=== PATIENT | female | born 1985 | race Caucasian/White ===

== ENCOUNTER 2016-08-08 21:30 | Emergency (ER) | payer MEDICAID ==
[2016-08-08] MEDS ORDERED: PROPARACAINE HCL OPTH 15ML BTL OPTH ONE (21:38)
--- NOTE | 2016-08-08 21:39 | Emergency Department Record ---
History of Present Illness - General Chief complaint: Eye Problem Stated complaint: DRY EYE Source: Patient Mode of Arrival: Ambulatory Limitations: No limitations - History of Present Illness Initial comments: 30 yo female presents with left eye redness and irritation for the last 3 days. She thought it might be allergies. She was seen in the [facility] care and was given gentamycin and cromolyn drops without improvement. She wears glasses. No contacts. No fevers. No drainage. No history of eye surgery or eye disease. She is seen by optometry in [place]. She called today to make an appointment and it was made for next week. chief complaint: Eye pain, Eye redness -: Days(s) (3) Location: Both eyes (left greater than right, she has pain in the left when the right is open) If Injury: None Eye Symptoms: Burning, Itching, Pain, Photophobia Severity: Moderate If Pain, Quality: Aching Consistency: Constant Associated Symptoms: None Treatments Prior to Arrival: Other (gentamycin and cromolyn) - Related Data Home Medications Medication Instructions Recorded Confirmed Last Taken Mesalamine 4 gm RC QOD ml 05/30/15 08/08/16 Unknown Hyoscyamine Sulfate 0.125 mg SL TID tab 07/17/16 08/08/16 Unknown Allergies Allergy/AdvReac Type Severity Reaction Status Date / Time Penicillins Allergy PT UNSURE Verified 08/08/16 21:37 OF REACTION sulfamethoxazole Allergy HIVES Verified 08/08/16 21:37 [From Bactrim] trimethoprim [From Bactrim] Allergy HIVES Verified 08/08/16 21:37 Review of Systems Constitutional: Denies: Chills, Fever, Malaise, Weakness Eyes: Reports: Eye pain, Photophobia, Vision change. Denies: Eye discharge ENT: Reports: Congestion. Denies: Throat pain Respiratory: Denies: Cough Cardiovascular: Denies: Chest pain, Palpitations, Syncope Endocrine: Denies: Fatigue Gastrointestinal: Denies: Abdominal pain, Diarrhea, Nausea, Vomiting Genitourinary: Denies: Dysuria, Urgency Musculoskeletal: Denies: Arthralgia, Back pain, Myalgia, Neck pain Skin: Denies: Bruising, Change in color, Rash Neurological: Denies: Headache, Numbness, Weakness Psychiatric: Denies: Anxiety Hematological/Lymphatic: Denies: Blood Clots, Easy bleeding, Easy bruising, Swollen glands Past Medical History - SOCIAL HISTORY Smoking Status: Never smoker - RESPIRATORY Hx Respiratory Disorders: No - CARDIOVASCULAR Hx Cardio Disorders: No - NEURO Hx Neuro Disorders: No - GI Hx GI Disorders: No - Hx Genitourinary Disorders: No - ENDOCRINE Hx Endocrine Disorders: No - MUSCULOSKELETAL Hx Musculoskeletal Disorders: No - PSYCH Hx Psych Problems: No - HEMATOLOGY/ONCOLOGY Hx Hematology/Oncology Disorders: No Family Medical History Hx Alcohol Use: Father, Mother Hx Anxiety: Father, Mother Hx Cancer: Mother Hx Depression: Father, Mother Hx Diabetes: Father Physical Exam - General General Appearance: Alert, Oriented x3, Cooperative, No acute distress Limitations: No limitations - Head Head exam: Normal inspection - Eye Eye exam: PERRL, Conjunctival injection (diffusely injected), EOMI, Other (AC is clear, pupil is round and reactive). negative: Normal appearance, Periorbital swelling, Periorbital tenderness Pupils: negative: Irregular, Unequal - ENT ENT exam: Normal exam, Normal orophraynx Ear exam: Normal external inspection Nasal Exam: Normal inspection Mouth exam: Normal external inspection - Neck Neck exam: Normal inspection - Rectal Rectal exam: Deferred - exam: Deferred - Neurological Neurological exam: Alert, Oriented X3. negative: Altered - Psychiatric Psychiatric exam: Normal affect, Normal mood - Skin Skin exam: Dry, Intact, Normal color, Warm. negative: Erythema Course - Reevaluation(s) Reevaluation #1: The patient had Alcaine drops placed without improvement of the pain I was able to stain the eye. No uptake at this time, no corneal abnormalities She has diffuse injection but the AC appears clear. I SW Dr Moses of her eye doctor office We discussed the findings. This clinically is more in line with an iritis He recommended Homatropine 2 drops tonight and 1 drop in the morning He will see her 8:30am in the office 08/08/16 22:07 08/08/16 22:11 Disposition Clinical Impression: Eye pain, Iritis Disposition: Home, Self-Care Additional Instructions: follow up to be seen by Dr Moses at 8:30am in the morning you may take one drop of the Homatropine upon waking in the morning Referrals: CLINT MOSES [] - Forms: Patient Portal Access
[2016-08-08] MEDS ORDERED: OPTH OPTH SCH (22:15)
[2016-08-08] MEDS ORDERED: HOMATROPINE HBR OPTH SCH (22:15)
[2016-08-08] MEDS ORDERED: HOMATROPINE HBR OPTH ONE (22:48)
[2016-08-08] MEDS ORDERED: OPTH OPTH ONE (22:48)
[2016-08-08] MEDS ORDERED: IBUPROFEN 600 MG TABLET PO ONE (23:01)
[2016-08-08] MEDS ORDERED: HYDROCODONE/APAP 5/325MG TABLET PO ONE (23:01)
== END 2016-08-08 23:08 | disposition home or self-care (01) ==
LOC: ER 21:30
DX: H20.013 Primary iridocyclitis, bilateral (principal)
CPT/HCPCS: 99282

== ENCOUNTER 2016-09-09 12:45 | Day surgery (SDC) | payer MEDICAID ==
[2016-09-09] MEDS ORDERED: PROPOFOL 10 MG/ML VIAL IV ONE (14:00)
[2016-09-09] MEDS ORDERED: LIDOCAINE 2% MDV (20MG/ML) 20ML VIAL IV ONE (14:00)
--- NOTE | 2016-09-11 14:24 | Operative Note ---
DATE OF SURGERY: 09/09/2016 Dictated by: Anaid Maxwell D.O. for Roberto Carlos De Leon D.O. PREOPERATIVE DIAGNOSIS: Ulcerative proctitis. POSTOPERATIVE DIAGNOSIS: Ulcerative proctitis. Surgeon: Roberto Carlos De Leon D.O. Histology Manager: Anaid Maxwell D.O. OPERATION: Diagnostic colonoscopy Anesthesia: Anesthesia was provided by the Anesthesia Department with propofol titrated to patient. PROCEDURE: The procedure was discussed with the patient, including risks, benefits, and alternatives, and patient was agreeable to the procedure. She had an opportunity to have her questions answered. She signed informed written consent and was taken back to the endoscopy suite. She was placed in the left lateral decubitus position. Anesthesia was begun. A digital rectal exam was performed, which was normal. No abnormalities were palpated. A PCF-160 colonoscope was then lubricated and placed in the patient's rectum. At the beginning of the procedure, there was note of some inflammation in the distal rectum, approximately 2-3 cm. the scope was then advanced easily to the cecum, which was identified by the appendiceal orifice and ileocecal valve. No abnormalities were noted. The mucosa appeared normal with normal distensibility, normal mucosal folds, and normal vascularity. The terminal ileum was then intubated, which also appeared normal. There was no irregularity to the terminal ileal mucosa noted. The colonoscope was then withdrawn. Careful inspection was made. The colonic mucosa, vascularity, and mucosal folds appeared normal, and distensibility was normal throughout the colon until distal rectum was observed. Retroflexion was performed. Again, inflammation was seen at the distal rectum, approximately 2-3 cm. The scope was then straightened and multiple cold forceps biopsies were obtained in 4 quadrants of the erythematous part of the rectum. These were collected and sent to Pathology. The scope was then withdrawn completely from the patient and patient tolerated the procedure well. Patient was then transferred to the Recovery Unit. IMPRESSION: 1. Distal ulcerative proctitis, approximately 2-3 cm from anal verge, with multiple biopsies obtained and sent to Pathology. 2. Normal terminal ileum and normal colon, otherwise. DISCHARGE INSTRUCTIONS: Patient to continue Asacol enemas and start a steroid taper by 5 mg every week until the end. She is recommended to have repeat colonoscopy in 2 years unless she becomes symptomatic, otherwise. We will await the pathology results from the biopsies. CC: Coco Casas M.D. [facility]
== END 2016-09-09 14:32 | disposition home or self-care (01) ==
LOC: HOP 12:45
PROVIDERS: ATTEND Internal Medicine Gastroenterology
DX: K51.20 Ulcerative (chronic) proctitis without complications (principal)
CPT/HCPCS: 81025

== ENCOUNTER 2017-08-10 18:10 | Emergency (ER) | payer MEDICAID ==
[2017-08-10] MEDS: Diph,Pert(Acell),Tet Vac 0.5 ML SYR IM ONE (18:41)
--- NOTE | 2017-08-10 18:41 | Emergency Department Record ---
History of Present Illness - General Chief complaint: Abscess Stated complaint: RT LEG ABCESS Time Seen by Provider: 08/10/17 18:26 Source: Patient Mode of Arrival: Ambulatory Limitations: No limitations - History of Present Illness Initial comments: The patient is here due to a skin abscess to the R medial proximal lower leg for 5 days. She denies any injury or fever. complaint: Abscess/boil Onset/Timin -: Days(s) Patient Tetanus UTD (within 5 yrs): No Severity: Moderate Severity scale (1-10): 7 Quality: Aching Consistency: Constant Improves with: None Worsens with: Palpation - Related Data Previous Rx's Medication Instructions Recorded Clindamycin HCl [Cleocin HCl] 300 mg PO QID #28 capsule 08/10/17 Allergies Allergy/AdvReac Type Severity Reaction Status Date / Time Penicillins Allergy PT UNSURE Verified 08/10/17 18:26 OF REACTION sulfamethoxazole Allergy HIVES Verified 08/10/17 18:26 [From Bactrim] trimethoprim [From Bactrim] Allergy HIVES Verified 08/10/17 18:26 Travel Screening - Travel/Exposure Within Last 30 Days Have you traveled within the last 30 days?: No - Travel/Exposure Within Last Year Have you traveled outside the [place] in the last year?: No - Additonal Travel Details Have you been exposed to anyone with a communicable illness?: No - Travel Symptoms Symptom Screening: None Review of Systems Constitutional: Denies: Chills, Fever Past Medical History - SOCIAL HISTORY Smoking Status: Never smoker Alcohol Use: None Drug Use Detail:: Marijuana - RESPIRATORY Hx Respiratory Disorders: No - CARDIOVASCULAR Hx Cardio Disorders: No - NEURO Hx Neuro Disorders: No - GI Hx GI Disorders: Yes Hx Irritable Bowel: Yes (Spastic colon; ulcitic proctitis) Comment:: COLITIS - Hx Genitourinary Disorders: Yes Hx UTI: Yes Comment:: CONTROL - ENDOCRINE Hx Endocrine Disorders: No - MUSCULOSKELETAL Hx Musculoskeletal Disorders: No - PSYCH Hx Psych Problems: Yes Hx Anxiety: Yes - HEMATOLOGY/ONCOLOGY Hx Hematology/Oncology Disorders: No Family Medical History Any Significant Family History?: Yes Hx Alcohol Use: Father, Mother Hx Anxiety: Father, Mother Hx Cancer: Mother Hx Depression: Father, Mother Hx Diabetes: Father Physical Exam - General General Appearance: Alert, Oriented x3, Cooperative, No acute distress - Head Head exam: Atraumatic, Normocephalic, Normal inspection - Eye Eye exam: Normal appearance, PERRL - Extremities Extremities exam: negative: Normal inspection (There is a 1 cm superficial skin abscess to the medial proximal R lower leg with 1 cm of surrounding cellulitis. There is no calf, thigh or knee tenderness or swelling.) Course Vital Signs 08/10/17 18:20 Temperature 98.8 F Pulse Rate 80 Respiratory 16 Rate Blood Pressure 116/77 Pulse Ox 98 - Reevaluation(s) Reevaluation #1: Procedure note: The skin abscess was cleansed with betadine and a # 11 blade was used to open the small abscess and drain a small amount of purulent material. There were no complications. 08/10/17 18:45 Reevaluation #2: I did explain to the patient the need to keep the area clean and wash daily and take the oral abx's. 08/10/17 18:46 Disposition Disposition: Discharge Clinical Impression: Abscess of skin Qualifiers: Site of cutaneous abscess: unspecified site Qualified Code(s): L02.91 - Cutaneous abscess, unspecified Disposition: Home, Self-Care Condition: (2) Stable Instructions: Abscess Incision and Drainage (ED) Additional Instructions: Please wash daily and keep covered until healed. Take the Clindamycin as directed. Please see your family doctor if not better in 2 days. Return to the ER for any worsening swelling, pain, redness or fever. Prescriptions: Clindamycin HCl [Cleocin HCl] 300 mg PO QID #28 capsule Forms: Patient Portal Access Time of Disposition: 18:41 Quality - Quality Measures Quality Measures: N/A - Blood Pressure Screening View Details: Yes Does Patient Have Any of the Following: No Blood Pressure Classification: Normal BP Reading Systolic Measurement: 116 Diastolic Measurement: 77 Screening for High Blood Pressure: < Normal BP, F/U Not Required > [G8783]
[2017-08-10] MEDS: CLINDAMYCIN 150 MG CAP PO ONE (18:44)
== END 2017-08-10 18:48 | disposition home or self-care (01) ==
LOC: ER 18:10
DX: L03.115 Cellulitis of right lower limb (principal)
CPT/HCPCS: 10060; 90715; 96372; 99283

== ENCOUNTER 2018-10-17 08:19 | Emergency (ER) | payer OTHER, MEDICAID ==
[2018-10-17] MEDS ORDERED: CLINDAMYCIN 150 MG CAP PO ONE (08:37)
--- NOTE | 2018-10-17 08:37 | Emergency Department Record ---
History of Present Illness - General Stated complaint: INSECT BITE LT KNEE Time Seen by Provider: 10/17/18 08:21 Source: Patient Mode of Arrival: Ambulatory Limitations: No limitations - History of Present Illness Initial comments: 32 yo female presents with a concern about a possible insect bite to the left leg. She did not see any actual insect. No fever/chills. No body aches. No nausea, vomiting or diarrhea. She is concerned about possible bed bug infestation at work. No other specific changes in her recent health. The area on the left knee has been present 4 days. Other areas remained small and resolved. No limit in knee ROM. MD Complaint: Extremity swelling Location: Left, Knee History of Same: No Radiation: Distal Quality: Aching Consistency: Constant Improves with: Nothing Worsens with: Nothing Associated Symptoms: Denies other symptoms - Related Data Home Medications Medication Instructions Recorded Confirmed Last Taken Mesalamine [Lialda] 2.4 gm PO DAILY 10/17/18 10/17/18 10/16/18 Previous Rx's Medication Instructions Recorded Clindamycin HCl 300 mg PO TID #21 capsule 10/17/18 Allergies Allergy/AdvReac Type Severity Reaction Status Date / Time Penicillins Allergy PT UNSURE Unverified 08/27/18 16:27 OF REACTION sulfamethoxazole Allergy HIVES Unverified 08/27/18 16:27 [From Bactrim] trimethoprim [From Bactrim] Allergy HIVES Unverified 08/27/18 16:27 Review of Systems Constitutional: Denies: Chills, Fever, Malaise, Weakness Eyes: Denies: Eye discharge ENT: Denies: Congestion, Ear pain, Throat pain Respiratory: Denies: Cough, Dyspnea Cardiovascular: Denies: Chest pain, Syncope Endocrine: Denies: Fatigue Gastrointestinal: Denies: Abdominal pain, Diarrhea, Nausea, Vomiting Genitourinary: Denies: Dysuria, Urgency Musculoskeletal: Reports: As per HPI, Other Skin: Reports: As per HPI, Change in color, Rash Neurological: Denies: Weakness Psychiatric: Denies: Anxiety Hematological/Lymphatic: Denies: Easy bleeding, Easy bruising Past Medical History - SOCIAL HISTORY Smoking Status: Never smoker Drug Use Detail:: Marijuana - RESPIRATORY Hx Respiratory Disorders: No - CARDIOVASCULAR Hx Cardio Disorders: No - NEURO Hx Neuro Disorders: No - GI Hx GI Disorders: Yes Hx Irritable Bowel: Yes (Spastic colon; ulcitic proctitis) Comment:: COLITIS - Hx Genitourinary Disorders: Yes Hx UTI: Yes Comment:: CONTROL - ENDOCRINE Hx Endocrine Disorders: No - MUSCULOSKELETAL Hx Musculoskeletal Disorders: No - PSYCH Hx Psych Problems: Yes Hx Anxiety: Yes - HEMATOLOGY/ONCOLOGY Hx Hematology/Oncology Disorders: No Family Medical History Hx Alcohol Use: Father, Mother Hx Anxiety: Father, Mother Hx Cancer: Mother Hx Depression: Father, Mother Hx Diabetes: Father Physical Exam - General General Appearance: Alert, Oriented x3, Cooperative, No acute distress Limitations: No limitations - Head Head exam: Atraumatic, Normal inspection - Eye Eye exam: Normal appearance. negative: Conjunctival injection - ENT ENT exam: Normal exam, Mucous membranes moist Ear exam: Normal external inspection Nasal Exam: Normal inspection Mouth exam: Normal external inspection - Neck Neck exam: Normal inspection - Cardiovascular Cardiovascular Exam: Regular rate, Normal rhythm, Normal heart sounds - Extremities Extremities exam: negative: Normal inspection Image of Full Body: 1 - 4cm non fluctuant, erythema, warm, distal to patella, full ROM consistent with local cellullitis without abscess - Back Back exam: Reports: Full ROM. Denies: Rash noted - Neurological Neurological exam: Alert, Oriented X3 - Psychiatric Psychiatric exam: Normal affect, Normal mood. negative: Agitated, Anxious - Skin Skin exam: Dry, Erythema, Intact, Warm Course - Reevaluation(s) Reevaluation #1: 10/17/18 08:39 Examination consistent with non complicated local cellulitis Disposition Disposition: Discharge Clinical Impression: Cellulitis Qualifiers: Site of cellulitis: extremity Site of cellulitis of extremity: lower extremity Laterality: left Qualified Code(s): L03.116 - Cellulitis of left lower limb Disposition: Home, Self-Care Condition: (1) Good Instructions: Cellulitis (ED) Additional Instructions: Call your doctor for the next available follow up appointment Return to the ER for a recheck if worse, any new concerns or questions Take the prescriptions provided as directed Prescriptions: Clindamycin HCl 300 mg PO TID #21 capsule Time of Disposition: 08:37 Quality - Quality Measures Quality Measures: N/A - Blood Pressure Screening Does Patient Have Any of the Following: No Blood Pressure Classification: Pre-Hypertensive BP Reading Systolic Measurement: 122 Diastolic Measurement: 77 Screening for High Blood Pressure: < Pre-Hypertensive BP, F/U Documented > [G8950] Pre-Hypertensive Follow-up Interventions: Referral to alternative/primary care provider.
== END 2018-10-17 08:46 | disposition home or self-care (01) ==
LOC: ER 08:19
DX: L03.116 Cellulitis of left lower limb (principal)
CPT/HCPCS: 99283

== ENCOUNTER 2018-10-19 11:49 | Emergency (ER) | payer OTHER, MEDICAID ==
[2018-10-19] MEDS ORDERED: CLINDAMYCIN 600MG/50ML PREMIX 600 MG/50 ML BAG IVPB ONE (12:16)
--- NOTE | 2018-10-19 12:24 | Emergency Department Record ---
History of Present Illness - General Chief complaint: Bite Insect/other Stated complaint: INSECT BITE Time Seen by Provider: 10/19/18 11:50 Source: Patient Mode of Arrival: Ambulatory Limitations: No limitations - History of Present Illness Initial comments: The patient has had a L knee prepatellar lesion for the last 3 days. She was seen in the ER 2 days ago and started on oral Clindamycin. Since she thinks the area has slightly worsened. There is pain to the area but no fever, chills, or rashes. 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 MD complaint: Lesion, Rash Onset/Timin -: Days(s) Location: LLE Severity: Mild Consistency: Constant Improves with: Immobilization Worsens with: Palpation, Movement Associated symptoms: Denies other symptoms Treatments Prior to Arrival: Antibiotic - Related Data Previous Rx's Medication Instructions Recorded Clindamycin HCl 300 mg PO TID #21 capsule 10/17/18 Allergies Allergy/AdvReac Type Severity Reaction Status Date / Time Penicillins Allergy PT UNSURE Unverified 08/27/18 16:27 OF REACTION sulfamethoxazole Allergy HIVES Unverified 08/27/18 16:27 [From Bactrim] trimethoprim [From Bactrim] Allergy HIVES Unverified 08/27/18 16:27 Travel Screening - Travel/Exposure Within Last 30 Days Have you traveled within the last 30 days?: No Review of Systems Constitutional: Denies: Chills, Fever, Malaise Eyes: Denies: Eye discharge ENT: Denies: Congestion Respiratory: Denies: Cough, Dyspnea Past Medical History - SOCIAL HISTORY Smoking Status: Never smoker - RESPIRATORY Hx Respiratory Disorders: No - CARDIOVASCULAR Hx Cardio Disorders: No - NEURO Hx Neuro Disorders: No - GI Hx GI Disorders: Yes Hx Irritable Bowel: Yes (Spastic colon; ulcitic proctitis) Comment:: COLITIS - Hx Genitourinary Disorders: Yes Hx UTI: Yes Comment:: CONTROL - ENDOCRINE Hx Endocrine Disorders: No - MUSCULOSKELETAL Hx Musculoskeletal Disorders: No - PSYCH Hx Psych Problems: Yes Hx Anxiety: Yes - HEMATOLOGY/ONCOLOGY Hx Hematology/Oncology Disorders: No Family Medical History Any Significant Family History?: Yes Hx Alcohol Use: Father, Mother Hx Anxiety: Father, Mother Hx Cancer: Mother Hx Depression: Father, Mother Hx Diabetes: Father Physical Exam - General General Appearance: Alert, Oriented x3, Cooperative, No acute distress - Head Head exam: Atraumatic - Eye Eye exam: Normal appearance - Extremities Extremities exam: Full ROM, Tenderness, Other (The Knee is clearly not infected with no effusion, warmth or tenderness.). negative: Normal inspection (There is a 4 cm circular lesion to the L prepatellar area. The area is very indurated and NOT fluctuant. There is tenderness to the indurated area. The lesion does have a central blister area present. It is circular in shape. ), Joint swelling, Pedal edema Course Vital Signs 10/19/18 11:56 Temperature 98.2 F Pulse Rate 90 Respiratory 20 Rate Blood Pressure 116/89 Pulse Ox 100 - Reevaluation(s) Reevaluation #1: Procedure note: The L knee prepatellar area was cleansed repeatedly with alcohol and a # 11 blade was used to open and unroof the central clear blister area. The blade was also used to minimally incise the central aspect of the wound. There was a very minimal amount of purulence expressed. 10/19/18 12:25 Reevaluation #2: The patient is doing well at this time. I did discuss the plan to continue the Clindamycin and warm compresses and she is to see her PCP in 2 days for recheck. If she is unable to see her PCP she is to return to the ER for recheck or sooner for any worsening symptoms. 10/19/18 12:54 Medical Decision Making - Data Complexity MDM Data: Labs Ordered and/or Reviewed - Lab Data Result diagrams: 10/19/18 12:25 10/19/18 12:25 Disposition Disposition: Discharge Clinical Impression: Cellulitis Qualifiers: Site of cellulitis: unspecified site Qualified Code(s): L03.90 - Cellulitis, unspecified Disposition: Home, Self-Care Condition: (2) Stable Instructions: Cellulitis (ED) Additional Instructions: Please use Tylenol or Motrin for pain and please continue the Clindamycin along with warm compresses to the L prepatellar area. Please see your doctor in 2 days for recheck. Please return to the ER if unable to see your doctor and also return sooner for any worsening symptoms of pain, redness or any fever. Forms: Patient Portal Access Time of Disposition: 12:56 Quality - Quality Measures Quality Measures: N/A - Blood Pressure Screening View Details: Yes Does Patient Have Any of the Following: No Blood Pressure Classification: Pre-Hypertensive BP Reading Systolic Measurement: 116 Diastolic Measurement: 89 Screening for High Blood Pressure: < Pre-Hypertensive BP, F/U Documented > [G8950] Pre-Hypertensive Follow-up Interventions: Referral to alternative/primary care provider.
[2018-10-19] MEDS ORDERED: ACETAMINOPHEN 1,000 MG/100 ML BTL IVPB ONE (12:26)
[2018-10-19 12:35] LABS: ABSOLUTE NEUTROPHIL COUNT 6.53; BASO % 0.3 % (0-6); EOS % 1.9 % (0-6); GRAN % 73.8 % (47-80); HEMOGLOBIN 13.7 gm/dl (11.6-16.0); LYMPH % 13.6 % (16-45); MEAN CELL VOLUME 87.3 fl (81-97); MEAN CORPUSCULAR HEMOGLOBIN 28.5 pg (27-33); MEAN CORPUSCULAR HGB CONC 32.6 g/dl (32-36); MEAN PLATELET VOLUME 11.2 fl (7.4-10.4); MONO % 10.4 % (0-9); PLATELET COUNT 232 K/uL (130-400); RED BLOOD COUNT 4.81 M/uL (3.80-5.40); RED CELL DISTRIBUTION WIDTH 13.9 % (11.5-14.5); WHITE BLOOD COUNT W/O DIFF 8.9 K/uL (4.2-12.2)
[2018-10-19 12:43] LABS: BLOOD UREA NITROGEN 12 mg/dL (6-20); CREATININE 0.7 mg/dL (0.5-0.9); EST GLOMERULAR FILTRATION RATE > 60 mL/min
[2018-10-19 12:45] LABS: GLUCOSE,RANDOM 77 mg/dL (74-109)
== END 2018-10-19 13:20 | disposition home or self-care (01) ==
LOC: ER 11:49
DX: L03.90 Cellulitis, unspecified (principal)
CPT/HCPCS: 10060; 80048; 85025; 86140; 99283; 99285

== ENCOUNTER 2018-10-21 16:30 | Observation (INO) | payer OTHER, MEDICAID ==
[2018-10-21] MEDS ORDERED: ACETAMINOPHEN 325 MG TAB PO PRN (17:35)
[2018-10-21] MEDS ORDERED: VANCOMYCIN 1GM/200ML PREMIX 1 GM/200 ML PIGGYBACK IVPB SCH (17:45)
[2018-10-21] MEDS ORDERED: 0.9 % SODIUM CHLORIDE 100ML BAG IV SCH (17:45)
[2018-10-21] MEDS: HYDROCODONE/APAP 5/325MG TABLET PO PRN ×2 (18:25→22:37)
[2018-10-21] MEDS ORDERED: 0.9 % SODIUM CHLORIDE 1000ML 1,000 ML IV PRN (18:50)
--- NOTE | 2018-10-21 19:56 | History & Physical ---
History of Present Illness - Date of Service Date of Service for History & Physical: 10/21/18 - History of Present Illness Admitting Diagnosis: Cellulitis of left knee History of Present Illness: 32 y/o female presenting with failed out patient therapy for left leg cellulitis. The patient was seen in the ED on 10/17 and 10/19 with complaint of left leg swelling, pain after an insect bite several days prior. The patient was started on Clindamycin but thre was no culture drawn as it was difficult to express pus from the wound. The patient denies fever, chills or joint pain but reports increasing warmth and swelling near the site of abscess. On presentation in the office today the patient was unable to bear weight and says that if has begun to ooze yellow pus for the past day. She says that she has had MRSA before from a cyst on her right leg. The patient is a direct observation admission to be followed by Dr. Lim. Dr. Burton is water control station engineer and was also made awe of this admission. Travel Screening - Travel/Exposure Within Last 30 Days Have you traveled within the last 30 days?: No - Travel/Exposure Within Last Year Have you traveled outside the [place] in the last year?: No - Additonal Travel Details Have you been exposed to anyone with a communicable illness?: No - Travel Symptoms Symptom Screening: None Past Medical History - SOCIAL HISTORY Smoking Status: Never smoker - RESPIRATORY Hx Respiratory Disorders: No - CARDIOVASCULAR Hx Cardio Disorders: No - NEURO Hx Neuro Disorders: No - GI Hx GI Disorders: Yes Hx Irritable Bowel: Yes (Spastic colon; ulcitic proctitis) Comment:: COLITIS - Hx Genitourinary Disorders: Yes Hx UTI: Yes Comment:: CONTROL - ENDOCRINE Hx Endocrine Disorders: No - MUSCULOSKELETAL Hx Musculoskeletal Disorders: No - PSYCH Hx Psych Problems: Yes Hx Anxiety: Yes - HEMATOLOGY/ONCOLOGY Hx Hematology/Oncology Disorders: No Family Medical History Any Significant Family History?: Yes Hx Alcohol Use: Father, Mother Hx Anxiety: Father, Mother Hx Cancer: Mother Hx Depression: Father, Mother Hx Diabetes: Father H&P Meds/Allergies - Allergies Allergies: Allergies Allergy/AdvReac Type Severity Reaction Status Date / Time Penicillins Allergy PT UNSURE Unverified 10/21/18 15:46 OF REACTION sulfamethoxazole Allergy HIVES Unverified 10/21/18 15:46 [From Bactrim] trimethoprim [From Bactrim] Allergy HIVES Unverified 10/21/18 15:46 - Home Medications Previous Rx's Medication Instructions Recorded Clindamycin HCl 300 mg PO TID #21 capsule 10/17/18 - Active Medications Active Medications: Current Medications Acetaminophen (Tylenol 325mg) 325 mg PO Q4H PRN PRN Reason: FEVER Hydrocodone Bitart/Acetaminophen ([place] 5mg/325mg) 1 each PO Q4H PRN PRN Reason: PAIN - MILD TO MODERATE (1-7) Last Admin: 10/21/18 18:25 Dose: 1 each Documented by: Sodium Chloride () 1,000 mls @ 75 mls/hr IV .[id number] PRN PRN Reason: LARGE VOLUME IV VANCOMYCIN 1GM/200ML PREMIX (Vancomycin 1 Gram/200 Ml Bag) 1 gm in 200 mls @ 200 mls/hr IVPB Q12H MARSHA Patient Own Med: Mesalamine 2.4 Gm Tablet (Lialda) 1 each PO DAILY MARSHA Physical Exam - Vital Signs Vital Signs: Vital Signs - Last 24 Hrs Temp Pulse Resp BP Pulse Ox 10/21/18 19:40 98.9 F 97 H 18 113/77 99 10/21/18 18:39 18 - General General Appearance: Alert, Oriented x3, Cooperative - Head Head exam: Atraumatic, Normocephalic - Eye Eye exam: Normal appearance, PERRL - Respiratory Respiratory exam: Normal lung sounds bilaterally - Cardiovascular Cardiovascular Exam: Regular rate Peripheral Pulses: 3+: Radial (R), Radial (L), Dorsalis Pedis (R), Dorsalis Pedis (L) - GI/Abdominal GI/Abdominal exam: Soft, Normal bowel sounds - Extremities Extremities exam: Other (left knee swelling with abscess) - Skin Skin exam: Erythema, Warm Type of lesion: Abscess (left knee with drainage ) VTE H&P Assessment - Risk for VTE Risk for VTE: No Risk Level: Very Low Risk Assessment Date: 10/21/18 Risk Assessment Time: 20:14 VTE Orders Placed or Will Be Placed: No VTE Reason for No Prophylaxis: Not Indicated Plan - Inpatient Certification Inpatient Certification: Admit to inpatient care: Based on my medical assessment, after consideration of patient's risk factors (age, co-morbidities and patient presenting symptoms and acuity), I expect that this patient will remain in the hospital greater than or equal to two midnights and that the services needed warrant inpatient care because: Patient Risk Factors: [] Estimated length of stay: [] The patient may reasonably be expected to be discharged or transferred to a hospital within 96 hours after admission to [facility]. Services needed: [] Post hospital care (if known): [] I certify that my determination is in accordance with my understanding of Medicare requirements for reasonable and necessary inpatient services. - Detailed Diagnosis and Plan (1) Left leg cellulitis Current Visit: Yes Status: Acute Base Code: L03.116 - CELLULITIS OF LEFT LOWER LIMB Comment: 10/21/18: - Increased redness, warmth, swelling. - Wound culture pending. - Vancomycin IV Q12H, Tylenol 325mg Q4H PRN, IVF: Nacl 0.9% @ 75 ml/hr, [place] 5mg/325mg Q4H PRN. - CBC w/ diff, BMP in the morning. - Change to PO Abx pending culture. (2) DVT prophylaxis Current Visit: Yes Status: Acute Base Code: Z29.9 - ENCOUNTER FOR PROPHYLACTIC MEASURES, UNSPECIFIED Comment: 10/21/18: - Pt low risk of DVT. Encourage ambulation. (3) Full code status Current Visit: Yes Status: Acute Base Code: Z78.9 - OTHER SPECIFIED HEALTH STATUS Comment: 10/21/18: Full code status
[2018-10-21] MEDS: VANCOMYCIN 1GM/200ML PREMIX 1 GM/200 ML PIGGYBACK IVPB SCH (20:21)
[2018-10-22] MEDS: HYDROCODONE/APAP 5/325MG TABLET PO PRN ×5 (03:01→20:50)
[2018-10-22] MEDS ORDERED: CALCIUM CARBONATE 500 MG TAB.CHEW PO PRN (03:34)
[2018-10-22] MEDS: VANCOMYCIN 1GM/200ML PREMIX 1 GM/200 ML PIGGYBACK IVPB SCH ×2 (06:08→18:21)
[2018-10-22 06:34] LABS: ABSOLUTE NEUTROPHIL COUNT 5.26; BASO % 0.4 % (0-6); EOS % 3.8 % (0-6); GRAN % 68.5 % (47-80); HEMATOCRIT 39.2 % (35.0-47.0); HEMOGLOBIN 12.9 gm/dl (11.6-16.0); LYMPH % 17.4 % (16-45); MEAN CELL VOLUME 88.3 fl (81-97); MEAN CORPUSCULAR HEMOGLOBIN 29.1 pg (27-33); MEAN CORPUSCULAR HGB CONC 32.9 g/dl (32-36); MEAN PLATELET VOLUME 11.5 fl (7.4-10.4); MONO % 9.9 % (0-9); PLATELET COUNT 206 K/uL (130-400); RED BLOOD COUNT 4.44 M/uL (3.80-5.40); WHITE BLOOD COUNT W/O DIFF 7.7 K/uL (4.2-12.2)
[2018-10-22 06:48] LABS: BLOOD UREA NITROGEN 9 mg/dL (6-20); CREATININE 0.6 mg/dL (0.5-0.9); EST GLOMERULAR FILTRATION RATE > 60 mL/min; GLUCOSE,RANDOM 81 mg/dL (74-109)
[2018-10-22] MEDS ORDERED: MESALAMINE 500 MG CAPSULE.SA PO SCH (10:00)
[2018-10-22] MEDS ORDERED: MESALAMINE 2.4 GM PO SCH ×2 (10:00→15:00)
--- NOTE | 2018-10-22 14:09 | Physician Progress Note ---
Subjective - Date Date of Physician Progress Note: 10/22/18 - Subjective Subjective Comment: Patient says that the swelling has gone down but she still has some pain in the left knee area. She has been afebrile and white count has been normal over the last 12 hours. Objective - Vital Signs Vital Signs: Vital Signs - Last 24 Hrs Temp Pulse Resp BP Pulse Ox 10/22/18 07:18 97.8 F 86 16 112/74 98 10/21/18 19:40 98.9 F 97 H 18 113/77 99 10/21/18 18:39 18 - General General Appearance: Alert, Oriented x3, Cooperative - Head Head exam: Atraumatic, Normocephalic - Eye Eye exam: Normal appearance, PERRL - Respiratory Respiratory exam: Normal lung sounds bilaterally - Cardiovascular Cardiovascular Exam: Regular rate Peripheral Pulses: 3+: Radial (R), Radial (L), Dorsalis Pedis (R), Dorsalis Pedis (L) - GI/Abdominal GI/Abdominal exam: Soft, Normal bowel sounds - Extremities Extremities exam: Other (left knee swelling with abscess which is continuing to drain yellow pus) - Skin Skin exam: Erythema, Warm Type of lesion: Abscess (left knee with drainage ) Assessment and Plan - Assessment and Plan (1) Left leg cellulitis Current Visit: Yes Status: Acute Base Code: L03.116 - CELLULITIS OF LEFT LOWER LIMB Comment: 10/22/18: - Swelling and redness has gone down since yesterday. - Patient remains afebrile and with no elevaion in white count. - Xray shows soft tissue swelling but no joint involvement. - Wound culture pending. - Vancomycin IV Q12H, Tylenol 325mg Q4H PRN, IVF: Nacl 0.9% @ 75 ml/hr, [place] 5mg/325mg Q4H PRN. - Repeat CBC w/ diff/ - Change to PO Abx pending culture. (2) DVT prophylaxis Current Visit: Yes Status: Acute Base Code: Z29.9 - ENCOUNTER FOR PROPHYLACTIC MEASURES, UNSPECIFIED Comment: 10/21/18: - Pt low risk of DVT. Encourage ambulation. (3) Full code status Current Visit: Yes Status: Acute Base Code: Z78.9 - OTHER SPECIFIED HEALTH STATUS Comment: 10/21/18: Full code status Results - Labs Result Diagrams: 10/22/18 06:10 08/22/19 06:10 Labs Last 24 Hours: Laboratory Results - last 24 hr 10/22/18 10/22/18 06:10 06:10 WBC 7.7 RBC 4.44 Hgb 12.9 Hct 39.2 MCV 88.3 MCH 29.1 MCHC 32.9 RDW 14.0 Plt Count 206 MPV 11.5 H Gran % 68.5 Lymphocytes % 17.4 Monocytes % 9.9 H Eosinophils % 3.8 Basophils % 0.4 Absolute Neutrophils 5.26 Sodium 139 Potassium 4.2 Chloride 106 Carbon Dioxide 21.0 L Anion Gap 12.0 BUN 9 Creatinine 0.6 Estimated GFR > 60 Random Glucose 81 Calcium 8.4 L DVT/PE Assessment - Risk for VTE Risk for VTE: No Risk Level: Very Low Risk Assessment Date: 10/21/18 Risk Assessment Time: 20:14 VTE Orders Placed or Will Be Placed: No VTE Reason for No Prophylaxis: Not Indicated - Active Medicaitons Current Medications: Current Medications Acetaminophen (Tylenol 325mg) 325 mg PO Q4H PRN PRN Reason: FEVER Hydrocodone Bitart/Acetaminophen ([place] 5mg/325mg) 1 each PO Q4H PRN PRN Reason: PAIN - MILD TO MODERATE (1-7) Last Admin: 10/22/18 08:05 Dose: 1 each Documented by: Calcium Carbonate/Glycine (Tums) 500 mg PO Q4H PRN PRN Reason: GI UPSET Last Admin: 10/22/18 03:35 Dose: 500 mg Documented by: Sodium Chloride () 1,000 mls @ 75 mls/hr IV .[id number] PRN PRN Reason: LARGE VOLUME IV VANCOMYCIN 1GM/200ML PREMIX (Vancomycin 1 Gram/200 Ml Bag) 1 gm in 200 mls @ 200 mls/hr IVPB Q12H MARSHA Last Infusion: 10/22/18 07:23 Dose: Infused Documented by: Patient Own Med: Mesalamine 2.4 Gm Tablet (Lialda) 1 each PO 1500 MARSHA AMI Plan - Labs Result Diagrams: 10/22/18 06:10 10/22/18 06:10
[2018-10-22] MEDS ORDERED: CYANOCOBALAMIN 1000 MCG PO SCH (15:00)
[2018-10-22] MEDS ORDERED: ETHINYL ESTRADIOL PO SCH (15:00)
[2018-10-22] MEDS ORDERED: CHOLECALCIFEROL 1000 UNIT PO SCH (15:00)
[2018-10-22] MEDS ORDERED: LEVONORGESTREL PO SCH (15:00)
[2018-10-22] MEDS ORDERED: DIPHENHYDRAMINE HCL 25 MG CAPSULE PO PRN (20:34)
[2018-10-23] MEDS ORDERED: VANCOMYCIN 1GM/200ML PREMIX 1 GM/200 ML PIGGYBACK IVPB SCH (03:00)
[2018-10-23 06:34] LABS: ABSOLUTE NEUTROPHIL COUNT 4.12; BASO % 0.3 % (0-6); GRAN % 58.2 % (47-80); HEMATOCRIT 39.2 % (35.0-47.0); HEMOGLOBIN 12.6 gm/dl (11.6-16.0); LYMPH % 25.3 % (16-45); MEAN CELL VOLUME 87.9 fl (81-97); MEAN CORPUSCULAR HEMOGLOBIN 28.3 pg (27-33); MEAN CORPUSCULAR HGB CONC 32.1 g/dl (32-36); MONO % 11.2 % (0-9); PLATELET COUNT 272 K/uL (130-400); RED BLOOD COUNT 4.46 M/uL (3.80-5.40); RED CELL DISTRIBUTION WIDTH 13.8 % (11.5-14.5); WHITE BLOOD COUNT W/O DIFF 7.1 K/uL (4.2-12.2)
--- NOTE | 2018-10-23 07:18 | RADIOLOGY REPORT ---
EXAM: LEFT KNEE, THREE VIEWS HISTORY: INFECTION. TECHNIQUE: AP, oblique and lateral views of the left knee were obtained portably. Comparison: None. Encounter: Initial. FINDINGS: There is normal bone mineralization. No fracture, dislocation, or destructive bone lesion is seen. The articular relations are maintained. No joint effusion. There is mild to moderate prepatellar soft tissue swelling. No soft tissue emphysema or foreign body identified. IMPRESSION: NO BONE NOR JOINT ABNORMALITY IDENTIFIED. PREPATELLAR SOFT TISSUE SWELLING. JOB NUMBER: [id number] [facility]
[2018-10-23] MEDS: HYDROCODONE/APAP 5/325MG TABLET PO PRN (08:02)
[2018-10-23] MEDS ORDERED: LINEZOLID 600 MG TABLET PO SCH (09:00)
--- NOTE | 2018-10-23 09:07 | Discharge Summary ---
Providers Discharge Summary Date: 10/23/18 Date of admission: 10/21/18 16:34 Attending physician: CRISTAL LIM Primary care physician: Martha Massey N.P. Physical Exam - Vital Signs Vital Signs: Vital Signs - Last 24 Hrs Temp Pulse Resp BP Pulse Ox 10/23/18 07:54 16 10/23/18 06:00 97.7 F 69 18 109/64 96 10/22/18 21:00 98.1 F 71 18 103/72 98 - General General Appearance: Alert, Oriented x3, Cooperative - Head Head exam: Atraumatic, Normocephalic - Eye Eye exam: Normal appearance, PERRL - Respiratory Respiratory exam: Normal lung sounds bilaterally - Cardiovascular Cardiovascular Exam: Regular rate Peripheral Pulses: 3+: Radial (R), Radial (L), Dorsalis Pedis (R), Dorsalis Pedis (L) - GI/Abdominal GI/Abdominal exam: Soft, Normal bowel sounds - Extremities Extremities exam: Other (left knee swelling and abscess imporved since yesterday. ) - Skin Skin exam: Erythema, Warm Type of lesion: Abscess (left knee with drainage ) Hospitalization - Hospitalization Admission Diagnosis: Cellulitis of left knee - Problem List/Discharge Diagnosis (1) Left leg cellulitis Current Visit: Yes Status: Acute Base Code: L03.116 - CELLULITIS OF LEFT LOWER LIMB Comment: 10/23/18: - Swelling, erythema improved and pain reduced to 2/10. - No fever, non tachycardic. WBC WNL - Xray shows soft tissue swelling but no joint involvement. - Wound culture prelim: 10-15 WBCs, gram + cocci - D/C Vancomycin IV Q12H, Start Zyvox 600mg Q12H and for the next 10 days. - [place] 5mg/325mg Q4H PRN. - Follow up with Dr. Lim in office in 1 week. (2) DVT prophylaxis Current Visit: Yes Status: Acute Base Code: Z29.9 - ENCOUNTER FOR PROPHYLACTIC MEASURES, UNSPECIFIED Comment: 10/23/18: - Pt low risk of DVT. Encourage ambulation. (3) Full code status Current Visit: Yes Status: Acute Base Code: Z78.9 - OTHER SPECIFIED HEALTH STATUS Comment: 10/21/18: Full code status - Hospitalization Course Hospital Course: 32 y/o female presenting with failed out patient therapy for left leg cellulitis. The patient was seen in the ED on 10/17 and 10/19 with complaint of left leg swelling, pain after an insect bite several days prior. The patient was started on Clindamycin but there was no culture drawn as it was difficult to express pus from the wound. The patient denies fever, chills or joint pain but reports increasing warmth and swelling near the site of abscess. On presentation in the office today the patient was unable to bear weight and says that if has begun to ooze yellow pus for the past day. She says that she has had MRSA before from a cyst on her right leg. The patient is a direct observation admission to be followed by Dr. Lim. Dr. Burton is credit resolution representative and was also made awe of this admission. 10/22-10/23: The patient's left knee swelling resolved and there was less erythema over the past 24 hours. Her white count remained within normal limits and she was afebrile throughout her admission. Preliminary blood cultures showed WBCs 10-15 and few gram positive cocci. The patient remained on Vancomycin Q12H and changed to Zyvox 600mg BID prior to discharge. She is to follow up with [facility] in 1 week. Procedures: Imaging and X-Rays 10/22/18 09:12 KNEE, LEFT 3 VIEWS [RAD] Stat Abnormal Labs: Abnormal Lab Results 10/22/18 10/22/18 10/23/18 Range/Units 06:10 06:10 06:13 MPV 11.5 H 11.0 H (7.4-10.4) fl Monocytes % 9.9 H 11.2 H (0-9) % Carbon Dioxide 21.0 L (22-29) mmol/L Calcium 8.4 L (8.6-10.0) mg/dL Discharge Medications - Discharge Medications Prescriptions: Linezolid 600 mg PO Q12H 10 Days #19 tablet Hydrocodone/APAP 5/325Mg [[place] 5Mg/325Mg] 1 each PO Q6H PRN #7 tab PRN Reason: Pain - Mild To Moderate (1-7) Home Medications: Ambulatory Orders Mesalamine [Lialda] 2.4 gm PO DAILY 10/17/18 [Last Taken 10/16/18] Cholecalciferol (Vitamin D3) [Vitamin D3] 1,000 unit PO DAILY 10/22/18 [Last Taken Unknown] Cyanocobalamin (Vitamin B-12) [Vitamin B-12] 1,000 mcg PO DAILY 10/22/18 [Last Taken Unknown] l-Norgest/E.estradiol-E.estrad [[place] 0.15-0.03-0.01 mg Tab] 1 each PO DAILY 10/22/18 [Last Taken Unknown] Hydrocodone/APAP 5/325Mg [[place] 5Mg/325Mg] 1 each PO Q6H PRN #7 tab 10/23/18 [Last Taken Unknown] Linezolid 600 mg PO Q12H 10 Days #19 tablet 10/23/18 [Last Taken Unknown] Discharge Plan - Discharge Instructions Additional Instructions: Follow up with Dr. Lim in 1 week at appointment scheduled on 10/30 at 1:40PM Take Linezolid 600mg twice daily for the next 9 days. Pain control with [place] 5/325mg Q6H as needed. She can also use Ibuprofen OTC as needed is she still has pain. Quality Measures - Quality Measures Quality Measures: Documentation of Current Medications in Medical Record, Screening for High Blood Pressure and F/U Documented - Current Medications Quality Measure: Measure #130: Documentation of Current Medications Documentation of Current Medications: <Current Medications Documented/Reviewed> [G8427] - Blood Pressure Screening Quality Measure: Screening for High Blood Pressure and Follow-Up Documented Does Patient Have Any of the Following: No Blood Pressure Classification: Normal BP Reading Systolic Measurement: 103 Diastolic Measurement: 57 Screening for High Blood Pressure: < Normal BP, F/U Not Required > [G8783] - Elder Abuse Suspicion Index EASI Reference Information: David GARCIA, Kyle C, Lauren D, Ac Lindsay.Development and validation of a tool to assist physicians identification of elder abuse: The Elder Abuse Suspicion Index (EASI ). Journal of Elder Abuse and Neglect, 2008; 20 (3): 276-300.
== END 2018-10-23 14:20 | disposition home or self-care (01) ==
LOC: MEDSURG 16:34 → INTOOBSV 16:34
PROVIDERS: ADMIT Internal Medicine; ATTEND Internal Medicine
DX: L03.116 Cellulitis of left lower limb (principal); L53.9 Erythematous condition, unspecified
CPT/HCPCS: 80048; 80202; 85025; 99217; 99220; 99225; J3370